=== PATIENT | female | born 1980 ===

== ENCOUNTER 2021-12-08 18:27 | Emergency (ER) | payer MEDICARE, MEDICAID, SELFPAY ==
[2021-12-08 18:47] VITALS: BP 150/85; PULSE 110; RESP 18; TEMP 36.7; O2SAT 99
--- NOTE | 2021-12-08 19:08 | ED.GENADUL_ITS ---
Discharge Plan Disposition Patient Disposition: HOME Condition: Stable Discharge Details Clinical Impression: Pediculosis capitis, Diarrhea Primary Care Provider: Alis Feliz ED Provider: Fior Elias Home Meds and New Rx's Prescriptions: New Lice Treatment (permethrin) 1 % liquid 60 ml topical ONCE Qty: 120 0RF Rx Instructions: may repeat treatment 7 days after first treatment if live lice remain Discharge Instructions Instructions: Pediculosis (ED), Acute Diarrhea (ED) Additional Instructions: Your scalp exam showed evidence of possible lice. You are given a prescription for permethrin lotion which is used to treat lice. Use this lotion as directed. Drink plenty of fluids and get plenty of rest. Continue to monitor your stool daily. If your diarrhea persists or you see evidence of possible worms, you should provide a stool sample to your primary care doctor for further evaluation to evaluate for potential worms and start treatment for a worm or parasitic infection if indicated. Call your primary care doctor's office tomorrow for follow-up. Return to the emergency department with any worsening or new concerning sympt oms. Discharge Data Discharge Physician: Fior Elias Medical Decision Making 41-year-old female presents with concern for possible worms in my hair and in my stool. Patient appears comfortable and nontoxic. Her heart rate was elevated on arrival but normal in my exam. Her lungs are clear and her abdomen is soft and nontender. Inspection of scalp notes potential small lice. She was unable to provide a stool sample. We will plan to treat with permethrin. She was advised to call her primary care doctor tomorrow for follow-up and to provide a stool sample for further evaluation of possible parasitic infection if her symptoms persist. Will hold on antiparasitic treatment at this time until she is able to have her stool sample tested and patient is agreeable with this plan. A prescription for permethrin given. Advised to continue to monitor her stool. She states she has a history of gestational diabetes/diabetes but takes no medication and has not checked her sugar. Offered to check here but she states she can follow-up with her primary care doctor for this. She appears comfortable and nontoxic and demonstrates capacity to make decisions. Advised to follow up with the primary care doctor for re-evaluation. Usual and customary return precautions given prior to discharge. Medical Records Medical records reviewed: Yes I reviewed the patient's medical records. HPI General Mode of arrival: ambulatory . Date/Time Provider Initiated Documentation: 12/08/21 18:28 . Limitations to Documentation: no limitations . Information obtained by: patient . HPI Narrative: Patient is a 41-year-old female presents with concern for worms in her hair and stool. She states she has had a few episodes of loose diarrhea and thought she saw worms in it. She states her stool has otherwise been brown and denies any rectal bleeding. She states she has been eating normally and denies any fever, nausea, vomiting, abdominal pain, urinary symptoms. She states her son has similar symptoms and she was concerned about possible worms. Related Data Home Medications Medication Instructions Recorded Confirmed permethrin 1 % topical liquid 60 ml TOPICAL ONCE #120 ml 12/08/21 (Lice Treatment (permethrin)) Previous Rx's Medication Instructions Recorded permethrin 1 % topical liquid 60 ml TOPICAL ONCE #120 ml 12/08/21 (Lice Treatment (permethrin)) Allergies Allergy/AdvReac Type Severity Reaction Status Date / Time bupropion [From Wellbutrin] Allergy teeth Unverified 12/08/21 18:56 grinding/jaw locking/itching General Stated Complaint: Nausea/Vomit/Diar TAY: 3 Review of Systems All systems reviewed & are unremarkable except as noted in HPI and below Constitutional Constitutional: Reports as per HPI, Denies chills and Denies fever(s) Eyes Eyes: Denies blurry vision ENT Ears, Nose, Mouth, and Throat: Denies dizziness, Denies sore throat and Denies throat swelling Cardiovascular Cardiovascular: Denies chest pain and Denies dyspnea Respiratory Respiratory: Denies cough and Denies dyspnea Gastrointestinal Gastrointestinal: Denies abdominal pain, Reports diarrhea and Denies vomiting Genitourinary Genitourinary: Denies hematuria and Denies dysuria Musculoskeletal Musculoskeletal: Denies back pain and Denies numbness Integumentary/Breasts Skin/Breast: Reports lesions and Reports rash Neurologic Neurologic: Denies dizziness, Denies localized weakness and Denies numbness Allergic/Immunologic Allergic/Immunologic: Denies throat swelling PFSH All Active Problems (Updated 12/08/21 @ 20:10 by Fior Elias DO) Pediculosis capitis (Acute) Diarrhea (Acute) Medical History (Updated 12/08/21 @ 20:10 by Fior Elias DO) Gestational diabetes Surgical History (Updated 12/08/21 @ 20:11 by Fior Elias DO) No significant past surgical history Social History Smoking/Tobacco Use Status: Current every day Tobacco Type: cigarettes Smoking risk assessment performed?: Yes Drug use: Occasionally Substance use type: crack/cocaine Do you feel safe at home: Yes Do you feel safe in your relationship?: Yes Exam Const General: cooperative, healthy appearing and no acute distress HENMT Head: other (White flakes, some noted to be possibly moving on hair follicle) Ears: hearing grossly normal bilaterally and EAC abnormal Mouth: oral mucosae normal Eyes General: appearance normal, both eyes and all related structures Neck Neck: normal visual inspection Resp Effort & Inspection: normal respiratory effort and able to speak in complete sentences Auscultation: clear to auscultation bilaterally Cardio Rate: regular rate Rhythm: regular rhythm GI Palpation: soft, not firm, no guarding, not rigid and nontender Skin General skin exam: no rashes or lesions noted Neuro General: patient alert, patient awake and patient oriented x3 Motor: muscle tone normal throughout Extrem General: normal to inspection and full ROM Psych Appearance: grossly normal Affect: normal affect Course Vital Signs Vital signs: Vital Signs Temperature 98.1 F 12/08/21 18:47 Pulse 110 H 12/08/21 18:47 Respiratory Rate 18 12/08/21 18:47 Blood Pressure 150/85 H 12/08/21 18:47 Pulse Oximetry 99 12/08/21 18:47 Temperature 98.1 F 12/08/21 18:47 Temperature Source Temporal Artery Scan 12/08/21 18:47 Pulse 110 H 12/08/21 18:47 Respiratory Rate 18 12/08/21 18:47 Respiratory Effort Non-Labored 12/08/21 18:53 Blood Pressure 150/85 H 12/08/21 18:47 Blood Pressure Position Sitting 12/08/21 18:47 Pulse Oximetry 99 12/08/21 18:47 Oxygen Delivery Method Room Air 12/08/21 18:47 Oxygen Flow Rate 0 12/08/21 18:47 Pain Level 0 12/08/21 18:47 PAWSS Have you Been Recently Intoxicated or Drunk Within the Last 30 days?: No Have you Ever Experienced Previous Episodes of Alcohol Withdrawal?: No Have you ever Experienced Withdrawal Seizures?: No Have you ever Experienced Delirium Tremens(DT)s?: No Have you ever undergone Alcohol Rehabilitation Treatment (i.e, inpt ot outpatient treatment programs)?: No Have you ever Experienced Blackouts?: No Have you ever Combined Alcohol with other Downers within the last 90 days?: No Have you ever Combined Alcohol with any other Substance of Abuse during the last 90 days?: No Positive Blood Alcohol level on Presentation? [PCS.BAL]: No Evidence of Increased Autonomic Activity (i.e. HR>120, tremor, sweating, agitation, nausea)?: No Result: 0
== END 2021-12-08 20:12 | disposition home or self-care (01) ==
PROVIDERS: Emergency Provider Physician Assistant; PCP Registered Nurse
DX: B85.0 Pediculosis due to Pediculus humanus capitis (principal); R19.7 Diarrhea, unspecified
CPT/HCPCS: 99283

== ENCOUNTER 2024-07-07 00:44 | Outpatient (CLI) | payer MEDICARE, SELFPAY ==
--- NOTE | 2024-07-07 | DI.NM_ITS ---
APPROVED REPORT Exam: Pharmacologic Patient Location: Out-Patient Room/Bed: Stress Nurse: Deya Mckeon RN Ordering Provider:ELIZABETH KRISTINE, Contact Number: [phone] BMI: 38.95 Baseline Rhythm: Sinus Rhythm Indications: Chest pain, cocaine use, other personal risk factors, Medical History Medical History: Asthma, bipolar II disorder, opiod abuse, HTN, nicotine dependence, PCOS, poly-subst ance abuse, DMT2 Cardiac Medications: Albuterol, mirena, omeprazole, quetipine, wellbutrin Allergies: Animal dander, feathers, house dust, bupropion Cardiac Risk Factors: Family hx, HTN, diabetes, asthma, smoker Previous Cardiac Procedures: None Pretest Chest Pain Characteristics: None Exercise History: Sedentary Physical Disabilities: Hx asthma Lung Sounds: Clear to auscultation Heart Sounds: Regular Stress Test Details Test: Pharmacologic stress was paired with low level exercise. Reason for pharmacologic stress test: physical limitation. Nuclear Acquisition: Rest Tc-99m/Stress Tc-99m 1 day Rest Isotope: Tc-99m Sestamibi. Dose: 10.6 Date: 07/07/2024 Injection Time: 1120 Stress Isotope: Tc-99m Sestamibi. Dose: 29.8 Date: 07/07/2024 Injection Time: 1305 HR Resting HR Supine: 81 bpm Max Heart Rate (APMHR): 176.195158 bpm Resting HR Standin bpm Target HR (85% APMHR): 149.262286 bpm Max HR Achieved: 133 bpm % of APMHR: 75.57 Recovery HR: 88 bpm BP Resting BP Supine: 148/92 mmHg Resting BP Standin/98 mmHg Max BP: 148/92 mmHg Recovery BP: 134/88 mmHg ECG Resting ECG: Sinus Rhythm Stress ECG: Sinus Tachycardia ST Change: Nondiagnostic low heart rate Recovery ECG: Sinus Rhythm Recovery ST Change: Nondiagnostic low heart rate Clinical Stress Symptoms: None Angina Score: None Rate Pressure Product: [id number] Stress ECG Conclusion 1. Resting electrocardiogram was normal 2. Patient underwent testing using pharmacologic stress with regadenoson 3. Peak heart rate achieved was 76% of maximal predicted for age 4. Electrocardiographic portion of the test was nondiagnostic 5. There were no significant dysrhythmias 6. See MPI report Stress Test Summary STAGE HR BP SpO2 Symptoms NOTES Supine 81 148/92 Standing 88 138/98 1 min post Lexiscan injection 128 138/82 96% 3 min post Lexiscan injection 101 142/92 97% 6 min post Lexiscan injection 88 134/88 MPI Conclusion Myocardial perfusion is normal. There is no ischemia or evidence of prior infarction Calculated EF is 50% with normal wall motion Radiologist Interpretation Radiologist agrees with Keg Raiser's Interpretation. Radiologist Interpretation by: Ras Green MD Interpretation Date/Time: 07/07/2024 17:11:43
[2024-07-07] MEDS: Regadenoson 0.4 MG/5 ML SYR IVP (13:07)
== END 2024-07-07 01:04 ==
PROVIDERS: PCP Registered Nurse; Visit Provider Specialist/Technologist Athletic Trainer
DX: F14.91 Cocaine use, unspecified, in remission (principal); Z91.89 Other specified personal risk factors, not elsewhere classified; R07.9 Chest pain, unspecified
CPT/HCPCS: 78452; 93017; J2785

== ENCOUNTER 2024-09-10 08:45 | Outpatient (CLI) | payer MEDICARE, SELFPAY | END 2024-09-10 08:46 | disposition home or self-care (01) | LOC: DI.CARD 08:47 | PROVIDERS: PCP Registered Nurse; Visit Provider Registered Nurse | CPT/HCPCS: 93010 ==